=== PATIENT | male | born 1960 | race Caucasian/White ===

== ENCOUNTER 2019-10-10 16:52 | Emergency (ER) | payer MEDICAID ==
[~2019-10-10] VITALS: Ht 170.2 cm; Wt 79.5 kg
[2019-10-10 18:26] LABS: CLARITY,URINE SLIGHTLY CLOUDY (Clear); COLOR,URINE YELLOW (Yellow); GLUCOSE, URINE NEGATIVE (Neg); KETONES,URINE NEGATIVE (Neg); LEUKOCYTE ESTERASE ,URINE TRACE (Neg); NITRITES, URINE NEGATIVE (Neg); OCCULT BLOOD,URINE NEGATIVE (Neg); PROTEIN,URINE TRACE mg/dl (Neg)
[2019-10-10 18:44] LABS: UA COLLECTION TYPE NON-SPECIFIED
[2019-10-10 18:46] LABS: BACTERIA,URINE NONE SEEN /HPF (Neg); MUCUS STRANDS MANY /LPF (Neg); SQUAMOUS EPITHELIAL CELL,UR FEW /LPF (FEW)
[2019-10-10] MEDS ORDERED: CefTRIAXone 250MG IM Kit w/LIDOcaine IM ONE (18:55)
[2019-10-10] MEDS ORDERED: penicillin G benzathine 1.2 million unit/2ml syringe IM ONE (18:55)
--- NOTE | 2019-10-10 19:21 | NUR ---
US at bedside being performed now
[2019-10-10] MEDS ORDERED: HYDROcodone/acetaminophen 5mg/325mg tablet PO ONE (19:25)
[2019-10-10] MEDS ORDERED: HYDR-4383 PO (19:59)
[2019-10-10] MEDS ORDERED: DOXY100C2 PO (19:59)
[2019-10-10 20:07] VITALS: BP 128/64
[2019-10-12 07:08] LABS: RPR Non Reactive (Non Reactive)
== END 2019-10-10 20:09 | disposition home or self-care (01) ==
LOC: ER 16:53
DX: N45.2 Orchitis (principal); N43.3 Hydrocele, unspecified; Z79.899 Other long term (current) drug therapy
CPT/HCPCS: 36415; 76870; 81001; 86592; 87088; 87491; 87591; 96372; 99284; J0561; J0696

== ENCOUNTER 2019-12-15 10:05 | Emergency (ER) | payer MEDICAID ==
[~2019-12-15] VITALS: Ht 170.2 cm; Wt 72.0 kg
[~2019-12-15 10:05] MED LIST: HYDR-4383 PO
[2019-12-15] MEDS ORDERED: LIDOcaine 1% W/epiNEPHrine 1:200,000 10ml vial IJ ONE (11:30)
[2019-12-15] MEDS ORDERED: LIDOcaine/epinephrine/tetracaine TOPICAL sol 3 ML syringe TOP ONE (12:05)
[2019-12-15 13:21] VITALS: BP 153/95
[2019-12-15 13:24] LABS: URINE AMPHETAMINE SCREEN POSITIVE (Neg); URINE BARBITUATE SCREEN NEGATIVE (Neg); URINE BENZODIAZEPINES SCREEN NEGATIVE (Neg); URINE CANNABINOID SCREEN POSITIVE (Neg); URINE COCAINE SCREEN NEGATIVE (Neg); URINE METHADONE SCREEN NEGATIVE (Neg); URINE OPIATE SCREEN NEGATIVE (Neg); URINE PHENCYCLIDINE SCREEN NEGATIVE (Neg)
== END 2019-12-15 13:47 | disposition home or self-care (01) ==
LOC: ER 10:06
DX: S00.01XA Abrasion of scalp, initial encounter (principal); R07.89 Other chest pain; F12.90 Cannabis use, unspecified, uncomplicated; F15.90 Other stimulant use, unspecified, uncomplicated; Z60.2 Problems related to living alone; Z79.899 Other long term (current) drug therapy; V49.9XXA Car occupant (driver) (passenger) injured in unspecified traffic accident, initial encounter; Y93.89 Activity, other specified; Y92.410 Unspecified street and highway as the place of occurrence of the external cause; Y99.8 Other external cause status
CPT/HCPCS: 70450; 71046; 80305; 99285

== ENCOUNTER 2020-10-06 11:40 | Emergency (ER) | payer MEDICAID ==
[~2020-10-06] VITALS: Ht 170.2 cm; Wt 78.8 kg
[2020-10-06 11:48] VITALS: BP 132/82
[2020-10-06] MEDS ORDERED: sulfamethoxazole/trimethoprim DS (800/160mg) tablet PO ONE (14:00)
[2020-10-06] MEDS ORDERED: cephalexin 250mg capsule PO ONE (14:00)
[2020-10-06] MEDS ORDERED: SULF1TAB49 PO (14:08)
[2020-10-06] MEDS ORDERED: CEPH-585 PO (14:08)
== END 2020-10-06 14:36 | disposition home or self-care (01) ==
LOC: ER 11:41
DX: L03.113 Cellulitis of right upper limb (principal); F12.90 Cannabis use, unspecified, uncomplicated; F15.90 Other stimulant use, unspecified, uncomplicated; Z60.2 Problems related to living alone; Z79.899 Other long term (current) drug therapy
CPT/HCPCS: 99283

== ENCOUNTER 2022-03-28 18:39 | Emergency (ER) | payer MEDICAID ==
[~2022-03-28] VITALS: Ht 177.8 cm; Wt 84.0 kg
[2022-03-28 18:48] VITALS: BP 102/68
[2022-03-28] MEDS ORDERED: TETanus/Pertussis (Acell)/Diphther VAC/PF (Tdap-Adult) 0.5ml syringe IMVAC ONE (19:25)
[2022-03-28] MEDS ORDERED: LIDOcaine 1% w/EPI 1:100,000 30ml vial (MDV) IJ ONE (19:25)
[2022-03-28] MEDS ORDERED: HYDROcodone/acetaminophen 5mg/325mg tablet PO ONE (19:40)
[2022-03-28] MEDS ORDERED: HYDR-3965 PO (20:06)
[2022-03-28] MEDS ORDERED: CEPH250T PO (20:06)
== END 2022-03-28 20:27 | disposition home or self-care (01) ==
LOC: ER 18:39
DX: S51.812A Laceration without foreign body of left forearm, initial encounter (principal); F12.90 Cannabis use, unspecified, uncomplicated; F15.90 Other stimulant use, unspecified, uncomplicated; Z60.2 Problems related to living alone; Z79.2 Long term (current) use of antibiotics; Z79.899 Other long term (current) drug therapy; X58.XXXA Exposure to other specified factors, initial encounter; Y93.89 Activity, other specified; Y92.89 Other specified places as the place of occurrence of the external cause; Y99.8 Other external cause status
CPT/HCPCS: 12034; 90715; 99284; A6223; A6449

== ENCOUNTER 2023-04-25 15:36 | Emergency (ER) | payer MEDICAID ==
[~2023-04-25] VITALS: Ht 170.2 cm; Wt 84.1 kg
[2023-04-25 15:52] VITALS: BP 125/87; PULSE 112; RESP 18; TEMP 98.8; O2SAT 98
[2023-04-25] MEDS ORDERED: IBUP-1984 PO (16:49)
[2023-04-25] MEDS ORDERED: CEPH500C2 PO (16:49)
== END 2023-04-25 17:30 | disposition home or self-care (01) ==
LOC: ER 15:36
DX: T23.121A Burn of first degree of single right finger (nail) except thumb, initial encounter (principal); L03.011 Cellulitis of right finger; F12.90 Cannabis use, unspecified, uncomplicated; F15.90 Other stimulant use, unspecified, uncomplicated; Z79.2 Long term (current) use of antibiotics; Z79.899 Other long term (current) drug therapy
CPT/HCPCS: 73130; 99283